=== PATIENT | male | born 1955 | race Caucasian/White ===

== ENCOUNTER 2019-06-20 07:41 | Day surgery (SDC) | payer MEDICARE ==
[~2019-06-20] VITALS: Ht 188 cm; Wt 79.5 kg
[2019-06-20 07:44] VITALS: BP 132/72
[2019-06-20] MEDS ORDERED: AMLO-101 (08:06)
[2019-06-20] MEDS ORDERED: ATOR10TA PO ×2 (08:06→08:07)
[2019-06-20] MEDS ORDERED: DIAZ10TA5 (08:06)
[2019-06-20] MEDS ORDERED: HYDR-4353 PO (08:07)
[2019-06-20] MEDS ORDERED: MIDAZolam 5mg/5ml vial ONE (08:20)
[2019-06-20] MEDS ORDERED: fentaNYL/PF 50MCG/1 ML 2ML syringe ONE (08:20)
[2019-06-20 09:11] VITALS: BP 119/61
[2019-06-20 09:21] VITALS: BP 130/76
[2019-06-20 09:31] VITALS: BP 129/73
[2019-06-20 09:41] VITALS: BP 131/76
== END 2019-06-20 09:45 | disposition home or self-care (01) ==
LOC: GI LAB 07:41
PROVIDERS: ATTEND Internal Medicine Gastroenterology
DX: Z09 Encounter for follow-up examination after completed treatment for conditions other than malignant neoplasm (principal); K62.1 Rectal polyp; K64.8 Other hemorrhoids; Z86.010 Personal history of colon polyps; Z98.890 Other specified postprocedural states
CPT/HCPCS: 45380; 45385; 99153; C1773; G0500; J2250; J3010; J7040; 88305; 99152; A4620